=== PATIENT | female | born 1985 | race Two or more races ===

== ENCOUNTER 2017-08-03 15:24 | Emergency (ER) | payer OTHER ==
[2017-08-03 15:30] VITALS: RESP 18; TEMP 98.4; O2SAT 98
--- NOTE | 2017-08-03 15:45 | EDPHY ---
General Time Seen by Provider: 08/03/17 15:34 Narrative: CHIEF COMPLAINT: Laceration to index and middle fingers HISTORY OF PRESENT ILLNESS: Patient complains of laceration to the left index and middle fingers. This happened within the past hour. She was going to grape picker a glass vase when it broke, causing lacerations. Moderate pain. No numbness or tingling. No difficulty bending or straightening the fingers. Moderate bleeding noted. No pulsatile bleeding described. No injury elsewhere. Tetanus is up-to-date less than 7 years ago. 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 No other associated complaints or modifying factors. TIME OF INJURY: Less than 1 hr prior to arrival TETANUS STATUS: Less than 7 years ago MEDICAL/SURGICAL/SOCIAL HISTORY: No significant medical history REVIEW OF SYSTEMS: Ten systems reviewed and are negative unless otherwise noted in the HPI EXAMINATION General Appearance: Alert, no distress Head: normocephalic, atraumatic Cardiovascular: Symmetric radial pulses 2+. Brisk cap refill Neurological: A&O, light sensation intact to the back of the left, interossei strength symmetric. Skin: Warm and dry, no rash. Two significant lacerations. The 1st is left index finger at the IP joint. 1 0.25 cm. No exposure of the tendon. Second laceration of the left middle finger just proximal to the DIP. 1 0.25 cm. Venous bleeding. No foreign body noted. No tendon injury noted. There is a superficial laceration on the left ring volar over the distal phalanx. No distraction of the wound borders. Extremities: Tenderness over the area lacerations. Full flexion extension of the fingers retained without deficit. Neurovascular intact with brisk cap refill the affected fingers. DIFFERENTIAL DIAGNOSES: Including but not limited to simple laceration, complex laceration, laceration with tendon injury, laceration foreign body MDM: 3:45 p.m. Lacerations to the left and middle fingers. I do not appreciate any obvious foreign body. I have ordered x-ray due to the involvement of glass. Digital blocks administered to the fingers. Proceed with irrigation and closure following the x-ray. Tetanus up-to-date. 4:30 p.m. Lacerations of the left hand that has been repaired. No injury to the tendon by examination. Full extension of the superficialis and profundus retained on all 3 fingers. The index and middle fingers did require suture repair. The ring fingers did not require any suture repair. Tube gauze will be placed. We discussed wound care at length. This is a worker's compensation scenario for the patient she will contact her code enforcement supervisor for this. ED precautions discussed. Discharged home stable condition. PROCEDURE: Digital Block Indication: Finger laceration Consent: Verbal Location: Left index finger Anesthesia: Lidocaine 1% plain, 0.25% Marcaine plain, 5mL Description: Base of the finger was prepped. The above was infused without difficulty. Tolerated well. Good anesthesia. Complications: None PROCEDURE: Digital Block Indication: Finger laceration Consent: Verbal Location: Left middle finger Anesthesia: Lidocaine 1% plain, 0.25% Marcaine plain, 5mL Description: Base of the finger was prepped. The above was infused without difficulty. Tolerated well. Good anesthesia. Complications: None PROCEDURE: Laceration repair, #2. Left middle finger Consent: Verbal Location: Left middle finger Length of repair: 1 2 5 cm Complexity: Simple Layer involvement: Single Anesthesia: Digital block Irrigation: Extensive Debridement: None Procedure description: Following good anesthesia, the wound was copiously irrigated. Wound bed was explored with a sterile glove, and there is no foreign body noted. No injury to the underlying tendon appreciated. Wound borders were approximated well with good hemostasis. Tolerated well without complication. Suture/Staple material: 5-0 Prolene, 3 simple interrupted sutures Wound care: Routine as discussed Suture/Staple removal: 5-7 Days PROCEDURE: Laceration repair #1., index finger Consent: Verbal Location: Left index finger, volar over the D IP Length of repair: 1 0.25 cm Complexity: Simple Layer involvement: Single Anesthesia: Digital block Irrigation: Extensive Debridement: None Procedure description: Following good anesthesia, the wound was copiously irrigated. Wound bed was explored with a sterile glove, and there is no foreign body noted. No injury to the underlying tendon appreciated. Wound borders were approximated well with good hemostasis. Tolerated well without complication. Suture/Staple material: 5-0 Prolene, 4 simple ruptured sutures Wound care: Routine as discussed Suture/Staple removal: 7-10 days SUPERVISION: This patient was independently evaluated without direct involvement of or examination by the attending physician. ED Precautions: Worsening pain. Erythema, edema, cyanosis, pallor, paresthesia or anesthesia. - History Smoking Status: Never smoked - Objective Vital Signs: Initial Vital Signs Temperature (C) 98.4 F 08/03/17 15:25 Heart Rate 69 08/03/17 15:25 Respiratory Rate 18 08/03/17 15:25 Blood Pressure 109/75 08/03/17 15:25 O2 Sat (%) 98 08/03/17 15:25 O2 Delivery Mode Room Air Allergies/Adverse Reactions: No Known Allergies Allergy (Unverified 08/03/17 15:30) Home Medications: Medication Instructions Recorded NK [No Known Home Meds] 08/03/17 Departure - Departure Disposition: Home, Routine, Self-Care Clinical Impression: Laceration of index finger of left hand without complication Qualifiers: Encounter type: initial encounter Qualified Code(s): S61.211A - Laceration without foreign body of left index finger without damage to nail, initial encounter Laceration of middle finger of left hand without complication Qualifiers: Encounter type: initial encounter Qualified Code(s): S61.213A - Laceration without foreign body of left middle finger without damage to nail, initial encounter Laceration of left ring finger Qualifiers: Encounter type: initial encounter Damage to nail status: without damage Foreign body presence: without foreign body Qualified Code(s): S61.215A - Laceration without foreign body of left ring finger without damage to nail, initial encounter Condition: Good Instructions: Care For Your Stitches (DC), Finger Laceration (ED) Additional Instructions: 1. Leave the ED dressing in place for 2 days 2. After removing the initial dressings, apply bacitracin once daily in a thin layer and then applied a Band-Aid to each laceration. Change these once daily 3. Contact her worker's compensation Clinic for outpatient follow-up 4. Return to emergency department or worker's compensation Clinic in 7-10 days for suture removal Referrals: Juan Hope MD [Medical Doctor] - As per Instructions Stand Alone Forms: Work Comp Follow Up
[2017-08-03 17:19] VITALS: BP 114/73; PULSE 60
== END 2017-08-03 17:19 | disposition home or self-care (01) ==
PROC: 0HQGXZZ Repair Left Hand Skin, External Approach (ICD-10-PCS; principal; 2017-08-03)
DX: S61.211A Laceration without foreign body of left index finger without damage to nail, initial encounter (principal); S61.213A Laceration without foreign body of left middle finger without damage to nail, initial encounter; S61.215A Laceration without foreign body of left ring finger without damage to nail, initial encounter; W25.XXXA Contact with sharp glass, initial encounter; Y99.0 Civilian activity done for income or pay; Y93.89 Activity, other specified